=== PATIENT | female | born 1965 | race Caucasian/White ===

== ENCOUNTER 2016-12-31 19:37 | Emergency (ER) | payer MEDICARE ==
[2016-12-31 20:22] LABS: HEMOGLOBIN 14.4 gm/dl (12.3-15.3); RED BLOOD COUNT 4.79 M/UL (4.00-5.10); WHITE BLOOD COUNT 14.2 K/UL (4.5-11.0)
[2016-12-31 20:37] LABS: BUN/CREATININE RATIO 11 (0-10)
== END 2016-12-31 21:20 | disposition home or self-care (01) ==
LOC: ER1 19:37
PROVIDERS: Physician Assistant Medical
DX: J20.9 Acute bronchitis, unspecified (principal); I10 Essential (primary) hypertension; F17.210 Nicotine dependence, cigarettes, uncomplicated; Z90.49 Acquired absence of other specified parts of digestive tract
CPT/HCPCS: 36415; 71020; 80053; 81001; 83690; 85025; 87081; 87880; 99284

== ENCOUNTER 2021-01-14 21:34 | Emergency (ER) | payer MEDICARE ==
[~2021-01-14 21:34] MED LIST: FLEXERIL 10 MG10 MG PO; IBUPROFEN800 MG PO; LEVAQUIN750 MG PO; NORCO 7.5-3251 EACH PO; OMNICEF 300 MG300 MG PO; ROBAXIN 750 MG750 MG PO; TORADOL 10 MG T10 MG PO
[2021-01-14] MEDS ORDERED: HYDROCODON-ACE1 EAC4 PO (22:29)
[2021-01-14] MEDS ORDERED: LODINE CAP 300300 MG PO (22:36)
[2021-01-14] MEDS ORDERED: ZOFRAN ODT 4 MG4 MG PO (22:36)
== END 2021-01-14 22:56 | disposition home or self-care (01) ==
LOC: ER1 21:34
DX: S82.854A Nondisplaced trimalleolar fracture of right lower leg, initial encounter for closed fracture (principal); J44.9 Chronic obstructive pulmonary disease, unspecified; I10 Essential (primary) hypertension; F17.210 Nicotine dependence, cigarettes, uncomplicated; W01.0XXA Fall on same level from slipping, tripping and stumbling without subsequent striking against object, initial encounter; Y92.009 Unspecified place in unspecified non-institutional (private) residence as the place of occurrence of the external cause
CPT/HCPCS: 29515; 73590; 73610; 99283

== ENCOUNTER 2021-06-26 08:52 | Observation (INO) | payer OTHER ==
[~2021-06-26] VITALS: Ht 167.6 cm; Wt 105.7 kg
[~2021-06-26 08:52] MED LIST changes: +HYDROCODON-ACE1 EAC4 PO; +LODINE CAP 300300 MG PO; +ZOFRAN ODT 4 MG4 MG PO
[2021-06-26 09:59] LABS: HEMOGLOBIN 14.6 gm/dl (12.3-15.3); RED BLOOD COUNT 4.89 M/UL (4.00-5.10)
[2021-06-26 10:45] LABS: BUN/CREATININE RATIO 19 (0-10)
[2021-06-26] MEDS ORDERED: GABAPENTIN600 MG PO (15:55)
[2021-06-26] MEDS ORDERED: WELLBUTRIN SR150 MG PO (15:55)
[2021-06-26] MEDS ORDERED: PROAIR HFA8.5 GM INH (15:56)
[2021-06-26] MEDS ORDERED: FLONASE 0.05% N16 GM (15:56)
[2021-06-26] MEDS ORDERED: ZAFIRLUKAST20 MG PO (15:56)
[2021-06-26] MEDS ORDERED: PROTONIX 40 MG40 M1 PO (15:57)
[2021-06-26] MEDS ORDERED: BREO ELLIPTA 21 EACH INH (15:57)
[2021-06-26] MEDS ORDERED: METFORMIN HCL500 MG PO (15:57)
[2021-06-26] MEDS ORDERED: CYCLOBENZAPRINE10 MG PO (15:58)
[2021-06-26] MEDS ORDERED: PLETAL 100 MG100 MG PO (15:58)
[2021-06-26] MEDS ORDERED: FLUOXETINE HCL40 MG PO (15:58)
[2021-06-26] MEDS ORDERED: LISINOPRIL20 MG PO (15:59)
[2021-06-26] MEDS ORDERED: HYDROCODON-ACE1 EAC2 PO (15:59)
[2021-06-26] MEDS ORDERED: IPRAT-ALBUT 0.5-3 ML INH (15:59)
[2021-06-26] MEDS ORDERED: CRESTOR10 MG PO (16:00)
[2021-06-27 09:45] LABS: HEMOGLOBIN 13.2 gm/dl (12.3-15.3); RED BLOOD COUNT 4.5 M/UL (4.00-5.10); WHITE BLOOD COUNT 8.1 K/UL (4.5-11.0)
[2021-06-27 10:21] LABS: BUN/CREATININE RATIO 15 (0-10)
[2021-06-27] MEDS ORDERED: ASPIRIN EC81 MG PO (12:41)
[2021-06-27] MEDS ORDERED: ZITHROMAX250 MG PO (12:41)
== END 2021-06-27 13:02 | disposition home or self-care (01) ==
LOC: ER1 08:52 → CDU 14:55 → ER1 14:55 → CDU 15:08
PROVIDERS: Family Medicine; Physician Assistant; ADMIT Internal Medicine Infectious Disease
DX: J44.1 Chronic obstructive pulmonary disease with (acute) exacerbation (principal); J44.0 Chronic obstructive pulmonary disease with (acute) lower respiratory infection; J20.9 Acute bronchitis, unspecified; R07.89 Other chest pain; I10 Essential (primary) hypertension; E11.9 Type 2 diabetes mellitus without complications; G89.4 Chronic pain syndrome; R79.89 Other specified abnormal findings of blood chemistry; F17.210 Nicotine dependence, cigarettes, uncomplicated; Z20.822 Contact with and (suspected) exposure to COVID-19; E78.5 Hyperlipidemia, unspecified; M54.9 Dorsalgia, unspecified; Z95.828 Presence of other vascular implants and grafts; F41.9 Anxiety disorder, unspecified; R94.31 Abnormal electrocardiogram [ECG] [EKG]
CPT/HCPCS: 0241U; 71045; 80048; 80053; 82550; 82553; 82962; 83874; 84484; 85025; 85379; 86140; 93005; 94640; 94660; 94664; 94760; G0378; J0696; J1650

== ENCOUNTER 2021-11-02 16:02 | Inpatient (IN) | payer OTHER ==
[~2021-11-02] VITALS: Ht 167.6 cm; Wt 103.0 kg
[~2021-11-02 16:02] MED LIST changes: +ASPIRIN EC81 MG PO; +BREO ELLIPTA 21 EACH INH; +CRESTOR10 MG PO; +CYCLOBENZAPRINE10 MG PO; +FLONASE 0.05% N16 GM; +FLUOXETINE HCL40 MG PO; +GABAPENTIN800 MG PO; +HYDROCODON-ACE1 EAC2 PO; +IPRAT-ALBUT 0.5-3 ML INH; +LISINOPRIL40 MG PO; +METFORMIN HCL500 MG PO; +PLETAL 100 MG100 MG PO; +PROAIR HFA8.5 GM INH; +PROTONIX 40 MG40 M1 PO; +WELLBUTRIN SR150 MG PO; +ZAFIRLUKAST20 MG PO; +ZITHROMAX250 MG PO
[2021-11-02 16:28] LABS: HEMOGLOBIN 12.5 gm/dl (12.3-15.3); RED BLOOD COUNT 4.23 M/UL (4.00-5.10); WHITE BLOOD COUNT 15.6 K/UL (4.5-11.0)
[2021-11-02 16:55] LABS: BUN/CREATININE RATIO 21 (0-10)
[2021-11-02] MEDS ORDERED: DIAZEPAM5 MG PO (18:27)
[2021-11-02] MEDS ORDERED: OXYBUTYNIN CHLO10 MG PO (18:30)
[2021-11-02] MEDS ORDERED: ESTRADIOL1 EAC8 TD (18:30)
[2021-11-02] MEDS ORDERED: PROMETRIUM100 MG PO (18:31)
--- NOTE | 2021-11-03 03:57 | NUR ---
SPOKE WITH LAB ABOUT POTASSIUM DRAW WITH MORNING LABS, REQUEST TO DRAW LABS AT 0530.
[2021-11-03 05:49] LABS: RED BLOOD COUNT 4.39 M/UL (4.00-5.10); WHITE BLOOD COUNT 13.4 K/UL (4.5-11.0)
[2021-11-03 06:14] LABS: BUN/CREATININE RATIO 24 (0-10)
[2021-11-04 02:23] LABS: HEMOGLOBIN 12.3 gm/dl (12.3-15.3); RED BLOOD COUNT 4.16 M/UL (4.00-5.10); WHITE BLOOD COUNT 16.1 K/UL (4.5-11.0)
[2021-11-04 02:52] LABS: BUN/CREATININE RATIO 33 (0-10)
[2021-11-05 02:27] LABS: HEMOGLOBIN 12.9 gm/dl (12.3-15.3); RED BLOOD COUNT 4.33 M/UL (4.00-5.10); WHITE BLOOD COUNT 15.5 K/UL (4.5-11.0)
[2021-11-05 02:54] LABS: BUN/CREATININE RATIO 37 (0-10)
[2021-11-05] MEDS ORDERED: PREDNISONE20 MG PO (11:28)
[2021-11-05] MEDS ORDERED: SPIRIVA HANDIH18 MCG INH (11:28)
[2021-11-05] MEDS ORDERED: COMBIVENT RESPIM4 GM INH (11:28)
== END 2021-11-05 11:14 | disposition home or self-care (01) | DRG 189 ==
LOC: ER1 16:02 → CDU 17:38 → M/S 17:38
PROVIDERS: Emergency Medicine; Physician Assistant; ADMIT Internal Medicine
PROC: 5A09357 Assistance with Respiratory Ventilation, Less than 24 Consecutive Hours, Continuous Positive Airway Pressure (ICD-10-PCS; 2021-11-02)
PROC: B24BZZZ Ultrasonography of Heart with Aorta (ICD-10-PCS; principal; 2021-11-03)
PROC: 5A09357 Assistance with Respiratory Ventilation, Less than 24 Consecutive Hours, Continuous Positive Airway Pressure (ICD-10-PCS; 2021-11-04)
PROC: 5A09357 Assistance with Respiratory Ventilation, Less than 24 Consecutive Hours, Continuous Positive Airway Pressure (ICD-10-PCS; 2021-11-05)
DX: J96.22 Acute and chronic respiratory failure with hypercapnia (principal); J44.1 Chronic obstructive pulmonary disease with (acute) exacerbation; Z20.822 Contact with and (suspected) exposure to COVID-19; F41.9 Anxiety disorder, unspecified; G89.29 Other chronic pain; E11.9 Type 2 diabetes mellitus without complications; I10 Essential (primary) hypertension; F17.210 Nicotine dependence, cigarettes, uncomplicated; E78.5 Hyperlipidemia, unspecified; J96.21 Acute and chronic respiratory failure with hypoxia; I73.9 Peripheral vascular disease, unspecified; Z95.5 Presence of coronary angioplasty implant and graft; Z79.01 Long term (current) use of anticoagulants; Z79.82 Long term (current) use of aspirin; Z82.49 Family history of ischemic heart disease and other diseases of the circulatory system; Z99.81 Dependence on supplemental oxygen; Z98.890 Other specified postprocedural states
CPT/HCPCS: ECHO; 36415; 36600; 71045; 80048; 80053; 81001; 82550; 82553; 82803; 82962; 83036; 83735; 83880; 84439; 84443; 84484; 85025; 86140; 87081; 93005; 93306; 94640; 94660; 94664; 94760; 96374; 96375; 96376; 99285; J1650; J1940; J2543; J2920; J2930; U0002

== ENCOUNTER 2021-11-12 02:38 | Emergency (ER) | payer OTHER ==
[~2021-11-12 02:38] MED LIST changes: +COMBIVENT RESPIM4 GM INH; +DIAZEPAM5 MG PO; +ESTRADIOL1 EAC8 TD; +OXYBUTYNIN CHLO10 MG PO; +PREDNISONE20 MG PO; +PROMETRIUM100 MG PO; +SPIRIVA HANDIH18 MCG INH
[2021-11-12] MEDS ORDERED: TORADOL 10 MG T10 MG PO (03:45)
== END 2021-11-12 04:48 | disposition home or self-care (01) ==
LOC: ER1 02:38
DX: M17.11 Unilateral primary osteoarthritis, right knee (principal); F17.200 Nicotine dependence, unspecified, uncomplicated
CPT/HCPCS: 73562; 96372; 99283; J1885